=== PATIENT | female | born 1980 | race Caucasian/White ===

== ENCOUNTER → 2024-03-06 14:20 | Outpatient (REF) | payer OTHER, SELFPAY ==
[2024-03-07 15:57] LABS: Mumps Virus IgG Positive; Rubeola (Measles) IgG Positive; Varicella Zoster IgG (VZV) Positive
[2024-03-07 20:41] LABS: Rubella Positive
[2024-03-07 23:59] LABS: Hepatitis B Surface Antibody Indeterminate
== END ==
LOC: OHS 14:20
PROVIDERS: ATTENDING PHYSICIAN Nurse Practitioner Family
DX: Z23 Encounter for immunization (principal)
CPT/HCPCS: 36415; 86706; 86735; 86762; 86765; 86787

== ENCOUNTER 2024-06-07 09:30 | Emergency (ER) | payer SELFPAY ==
[2024-06-07 09:39] VITALS: BP 111/81
--- NOTE | 2024-06-07 09:48 | ED.GENMED ---
History of Present Illness
General
Chief Complaint: Medication Reaction
Source: patient
Exam Limitations: none
Time Seen by Provider: 06/07/24 09:47
History of Present Illness
History of Present Illness:
See MDM
Past History
Past History
ED Past Medical History: None
ED Past Surgical History: None
Social History
Tobacco: Non-smoker
Alcohol: Occasional
Phy Exam
Physical Exam
Physical Exam:
See MDM
Course
Orders/Labs/Results
Orders:
Orders
06/07/24 09:59
Urine Drug Abuse Screen Urgent
Date Specimen was Collected: 06/07/24
Time Specimen was Collected: 10:56
06/07/24 10:20
Alcohol Urgent
Complete Blood Count/With Diff Urgent
Comprehensive Metabolic Panel Urgent
Abnormal Lab Results
06/07/24
10:20
RDW 18.6 H %
(11.5-14.5)
Abs Immat Gran (auto) 0.1 H 10^3/uL
(0-0.05)
Immature Gran % 0.9 H %
(0-0.5)
Lymphocytes % 17.4 L %
(20.5-51.1)
Carbon Dioxide 18 L mmol/L
(22-30)
Creatinine 0.5 L mg/dL
(0.6-1.0)
AST 38 H U/L
(14-36)
Albumin 5.3 H g/dl
(3.5-5.0)
06/07/24 10:20
06/07/24 10:20
Vital Signs
Initial and Last Documented VS:
Initial Vital Signs
Temp Pulse Resp BP Pulse Ox
97.5 F 77 16 111/81 98
06/07/24 09:39 06/07/24 09:39 06/07/24 09:39 06/07/24 09:39 06/07/24 09:39
Last Documented Vital Signs
Temp Pulse Resp BP Pulse Ox
97.5 F 88 14 104/72 98
06/07/24 09:39 06/07/24 11:08 06/07/24 11:08 06/07/24 11:08 06/07/24 09:39
MDM/Problems Addressed
Differential Diagnosis Includes:
HPI and MDM Narrative:
43-year-old female presenting from occupational health for drug and alcohol testing. Patient was found to be 'off' earlier this morning at work. She was sent to occupational health and sent to the emergency department for testing. Patient blames
this on taking hydroxyzine at 5 AM. She denies any alcohol or drug use this morning. She does acknowledge that she drank alcohol last night. Patient's biggest issue is slurred speech and feeling 'off'. She denies headache, numbness or tingling
Physical exam
General: Well appearing and non-toxic
HEENT: protecting airway
Neck: appears supple
CV: No evidence of cyanosis. Regular rate and rhythm
Resp: No accessory muscle use
Abd: Non-distended
Extremities: No deformities. Moving legs and arms without difficulty.
Neuro: alert. Mild slurred speech. No aphasia. Sensation grossly intact. No focal neurodeficits no
Psych: Normal affect
Skin: Intact
Problems Addressed including Acute and Chronic Conditions affecting care:
1. Dysarthria
Acuity: acute
Prognosis: stable
Details: Potentially in the setting of drug or alcohol use. Patient believes this could be related to hydroxyzine. Will obtain UDS and alcohol level in addition to basic blood work
Updates
Patient found to have an alcohol level of 286 which correlates to her clinical exam
HR did have a discussion with patient. Will discharge home when she can find a ride.
Will have MARILIN evaluate
12:25 PM before MARILIN walked to the room, it was realized that the patient had eloped and could not be found
Differential Diagnosis (but not limited to): Alcohol use, medication side effect
Testing considered: CT head but no focal neurodeficits noted
Drug therapy (if applicable): OTC meds, please see d/c instruction regarding Rx drugs
Amount and/or Complexity of Data Reviewed
Clinical info obtained from: Patient
External data reviewed: N/A
Labs I independently reviewed (but not limited to): Elevated alcohol level
Radiology: N/A
Pulse Ox: not hypoxic
EKG independently reviewed: N/A
Subassembly Assembler: N/A
Critical Care: N/A
Risk of Complication:
Social Determinants of health: Good social support
Discussed with other providers: N/A
Escalation of Care includes Admit/Obs: After being observed in the Emergency Department, pt stable for discharge.
Occasional wrong word or 'sound a like' substitutions may have occurred due to the inherent limitations of voice recognition software. Read the chart carefully and recognize, using context, where substitutions have occurred.
*Critical Care Note
Total Time (30-74mins, 75-104mins- exclusive of procedures): Not Applicable
ED Attending Note
-
Portions of this chart may have been created with voice recognition software.� Occasional wrong word or��sound alike� substitutions may have occurred due to the inherent limitations of voice recognition software.
Discharge Plan
Departure
Patient Disposition: Home (Routine Discharge)
Date of Disposition: 06/07/24
Time of Disposition: 12:23
Patient with high blood pressure during this ER visit?: No
Discharge Problem:
Alcohol intoxication
Referrals:
NONE,* [Family Provider] -
Activity Restrictions/Additional Instructions:
Please follow-up with occupational health
Interventions
Interventions:
*Risk Screen - Suicide Last Done: 06/07/24 09:39
*General Assessment Last Done: 06/07/24 09:39
*Neglect/Abuse Screening Last Done: 06/07/24 09:39
*ED COVID-19 Vaccine History Last Done: 06/07/24 09:55
ED-Skin Assessment Last Done: 06/07/24 09:47
ED- Pulmonary Assessment Last Done: 06/07/24 09:47
ED-EENT Assessment Last Done: 06/07/24 09:47
Discharge Date and Time
Print Language: SLOVAK
[2024-06-07 10:48] LABS: ALT (SGPT) 22 U/L (0-35); AST (SGOT) 38 U/L (14-36); Albumin 5.3 g/dl (3.5-5.0); Alkaline Phosphatase 89 U/L (38-126); Blood Urea Nitrogen 13 mg/dl (7-17); Calcium 9.5 mg/dl (8.4-10.2); Carbon Dioxide 18 mmol/L (22-30); Chloride 105 mmol/L (98-107); Glucose 92 mg/dl (70-99); Potassium 4.6 mmol/L (3.5-5.1); Sodium 144 mmol/L (135-145); Total Protein 7.9 g/dl (6.3-8.2); eGFR > 60.00
[2024-06-07 10:51] LABS: % Basophils 0.7 % (0-2); % Eosinophils 1.9 % (0-6); % Immature Granulocytes 0.9 % (0-0.5); % Lymphocytes 17.4 % (20.5-51.1); % Monocytes 6.2 % (1.7-9.3); % Neutrophils 72.9 % (42.2-75.2); Absolute Basophils 0.1 10^3/uL (0-0.2); Absolute Eosinophils 0.2 10^3/uL (0-0.7); Absolute Immature Granulocytes 0.1 10^3/uL (0-0.05); Absolute Lymphocytes 1.4 10^3/uL (1.2-3.4); Absolute Monocytes 0.5 10^3/uL (0.1-0.6); Absolute Neutrophils 5.9 10^3/uL (1.4-6.5); Hematocrit 39.1 % (37.0-47.0); Hemoglobin 13.4 g/dL (12.0-16.0); Mean Corp Hgb Conc. 34.3 g/dL (33.0-37.0); Mean Corpuscular Hgb 29.1 pg (27.0-31.0); Mean Platelet Volume 9.6 fL (7.4-10.4); Nucleated Red Blood Cells % 0 %; Platelet Count 377 10^3/uL (130-400); Red Cell Dist. Width 18.6 % (11.5-14.5); White Blood Cell Count 8.1 10^3/uL (4.8-10.8)
[2024-06-07 11:08] VITALS: BP 104/72
[2024-06-07 11:25] LABS: Alcohol 286 mg/dl; Total Bilirubin 0.7 mg/dl (0.2-1.3)
== END 2024-06-07 12:39 | disposition left against medical advice (07) ==
LOC: EMR 09:30
PROVIDERS: EMERGENCY PHYSICIAN Student in an Organized Health Care Education/Training Program
DX: F10.129 Alcohol abuse with intoxication, unspecified (principal)
CPT/HCPCS: 99283; 80053; 82077; 85025

== ENCOUNTER 2024-07-16 13:03 | Emergency (ER) | payer SELFPAY ==
[2024-07-16 13:05] VITALS: BMI 20.1
[2024-07-16 13:06] VITALS: BP 115/86
[2024-07-16 13:12] VITALS: BP 115/86
[2024-07-16] MEDS: NSS 1000 IV (13:58)
[2024-07-16 14:00] VITALS: BP 116/82
--- NOTE | 2024-07-16 14:06 | ED.GENMED ---
History of Present Illness
<DOMINIQUE Corbett - Last Filed: 07/16/24 16:31>
General
Chief Complaint: Alcohol Problem
Source: patient
Exam Limitations: none
Time Seen by Provider: 07/16/24 13:11
Nursing documentation reviewed up to this point in time: agreed with
History of Present Illness
History of Present Illness:
Patient is a 43-year-old female who presents via EMS from work. Patient reports her boss was concerned that she was intoxicated and sent here for evaluation. Patient presents awake alert she admits to being an alcoholic and tells me she last drank
2 bottles of wine at 2 AM. She does feel dizzy now. She reports she has a long history of alcohol abuse and has been inpatient multiple times as well as outpatient.
She has no prior history of withdrawal seizures or delirium tremors. She does mention however that she does going to withdrawal which is why she started drinking again last night, she felt shakes come on approximately 8:15pm.
In addition she reports she took hydroxyzine last night and this morning.
Past History
<DOMINIQUE Corbett - Last Filed: 07/16/24 16:31>
Past History
ED Past Medical History: None
ED Past Surgical History: None
Social History
Tobacco: Non-smoker
Alcohol: Occasional
Review of Systems
<DOMINIQUE Corbett - Last Filed: 07/16/24 16:31>
Review of Systems
Allergies reviewed?: Yes
All Other Systems: ROS reviewed and negative except as documented in HPI and ROS
Constitutional: Reports no symptoms
Respiratory: Reports no symptoms
Cardiac: Reports no symptoms
ABD/GI: Reports no symptoms
: Reports no symptoms
Musculoskeletal: Reports no symptoms
Skin: Reports no symptoms
Neurological: Reports dizzy
Hematologic/Lymphatic: Reports no symptoms
Psychiatric: Denies suicidal
Phy Exam
<DOMINIQUE Corbett - Last Filed: 07/16/24 16:31>
General Physical Exam
General Presentation: no apparent distress
General age: appears stated age
General Skin: warm and dry
General Habitus: normal
General Mental: appears intoxicated
General Hydration: dry mucous membranes
Cardiovascular Exam
Cardiovascular Exam: regular rate/rhythm, no murmur and normal peripheral pulses
Pulmonary Exam
Pulmonary Exam: lungs clear and no respiratory distress
Neurological Exam
Neurological Exam: alert and oriented x3
Musculoskeletal Exam
Musculoskeletal Exam: full ROM
Skin Exam
Skin Exam: normal color and warm/dry
Psychiatric Exam
Psychiatric Exam: normal mood/affect
Scores
<DOMINIQUE Corbett - Last Filed: 07/16/24 16:31>
Withdrawal Assessment of Alcohol
Withdrawal Assessment Completed?: Yes
Nausea and Vomiting: No nausea and no vomiting
Tactile Disturbances: None
Tremor: No tremor
Auditory Disturbances: Not present
Paroxysmal Sweats: No sweat visible
Visual Disturbances: Not present
Anxiety: No anxiety, at ease
Headache, Fullness in Head: Not present
Agitation: Normal activity
Orientation and clouding of sensorium: Oriented and can do serial additions
Total CIWA Score: 0
Alcohol Withdrawal Medication Recommendation: Equal to MSAS Score 0-4. Monitor & re-assess q2hrs, NO MEDICATION NEEDED
<Refugio Resendiz MD - Last Filed: 07/17/24 08:19>
Withdrawal Assessment of Alcohol
Total CIWA Score: 0
Alcohol Withdrawal Medication Recommendation: Equal to MSAS Score 0-4. Monitor & re-assess q2hrs, NO MEDICATION NEEDED
Course
<DOMINIQUE Corbett - Last Filed: 07/16/24 16:31>
Orders/Labs/Results
Orders:
Orders
07/16/24 13:44
0.9% Sodium Chloride 1000 ml [Nss] 1,000 ml IV BOLUS
Test Result ONCE
07/16/24 13:56
Alcohol Urgent
Complete Blood Count/With Diff Urgent
Comprehensive Metabolic Panel Urgent
HCG, Serum Qualitative Screen Urgent
Abnormal Lab Results
07/16/24
13:56
WBC 3.7 L 10^3/uL
(4.8-10.8)
MCH 31.1 H pg
(27.0-31.0)
RDW 18.1 H %
(11.5-14.5)
Immature Gran % 0.8 H %
(0-0.5)
Sodium 148 H mmol/L
(135-145)
AST 44 H U/L
(14-36)
Albumin 5.4 H g/dl
(3.5-5.0)
07/16/24 13:56
07/16/24 13:56
Vital Signs
Initial and Last Documented VS:
Initial Vital Signs
Temp Pulse Resp BP Pulse Ox
98.0 F 74 17 115/86 94
07/16/24 13:06 07/16/24 13:06 07/16/24 13:06 07/16/24 13:06 07/16/24 13:06
Last Documented Vital Signs
Temp Pulse Resp BP Pulse Ox
98.0 F 83 14 116/82 98
07/16/24 13:06 07/16/24 14:00 07/16/24 14:00 07/16/24 14:00 07/16/24 13:30
General Distillery Worker consulted with Physician
General Distillery Worker consulted with physician?: Yes
Name of Physician Consulted: DR Marino
<Refugio Resendiz MD - Last Filed: 07/17/24 08:19>
Orders/Labs/Results
Orders:
Orders
07/16/24 13:44
0.9% Sodium Chloride 1000 ml [Nss] 1,000 ml IV BOLUS
Test Result ONCE
07/16/24 13:56
Alcohol Urgent
Complete Blood Count/With Diff Urgent
Comprehensive Metabolic Panel Urgent
HCG, Serum Qualitative Screen Urgent
Abnormal Lab Results
07/16/24
13:56
WBC 3.7 L 10^3/uL
(4.8-10.8)
MCH 31.1 H pg
(27.0-31.0)
RDW 18.1 H %
(11.5-14.5)
Immature Gran % 0.8 H %
(0-0.5)
Sodium 148 H mmol/L
(135-145)
AST 44 H U/L
(14-36)
Albumin 5.4 H g/dl
(3.5-5.0)
07/16/24 13:56
07/16/24 13:56
Vital Signs
Initial and Last Documented VS:
Initial Vital Signs
Temp Pulse Resp BP Pulse Ox
98.0 F 74 17 115/86 94
07/16/24 13:06 07/16/24 13:06 07/16/24 13:06 07/16/24 13:06 07/16/24 13:06
Last Documented Vital Signs
Temp Pulse Resp BP Pulse Ox
98.0 F 83 14 116/82 98
07/16/24 13:06 07/16/24 14:00 07/16/24 14:00 07/16/24 14:00 07/16/24 13:30
<DOMINIQUE Corbett - Last Filed: 07/16/24 16:31>
MDM/Problems Addressed
Differential Diagnosis Includes:
not limited to: acute alcohol intoxication
MDM/Problems Addressed:
As documented patient is a 43-year-old female sent by work for concerns for slurred speech. Patient presents awake alert she reports she is an alcoholic and tells me she last drank last night at 2 AM however she does appear mildly intoxicated. She
however is awake alert and not confused able to follow commands and is ambulatory with a steady gait. Patient consented for blood and alcohol testing. Patient was cooperative however then wanted to leave and did rip her IV line out. Patient was
evaluated both myself and ED physician and despite alcohol level being elevated patient has remained awake alert and has a very steady gait.
Pt had no evidence of withdrawal here in the ER was nontachycardic nontachypneic.
Patient's alcohol level was elevated to 92. Patient did not have her phone and was not able to call for a ride and therefore a Ly[employer] was called for patient patient was taken directly from the ER treatment area to the lift by the RN and lift was
taken patient directly to her home address listed.
<DOMINIQUE Corbett - Last Filed: 07/16/24 16:31>
*Pulse Oximetry
Patient hypoxic: no
*Critical Care Note
Total Time (30-74mins, 75-104mins- exclusive of procedures): Not Applicable
ED Attending Note
<DOMINIQUE Corbett - Last Filed: 07/16/24 16:31>
-
Portions of this chart may have been created with voice recognition software.� Occasional wrong word or��sound alike� substitutions may have occurred due to the inherent limitations of voice recognition software.
<Refugio Resendiz MD - Last Filed: 07/17/24 08:19>
ED Attending Note
Patient seen and examined by attending physician: Yes
I performed the substantive portion of visit, reviewed & personally made and approve the management plan that is documented in note by myself or JCARLOS.: Yes
ED Attending Note:
I have seen and evaluated the patient with a [id number] encounter. I have spoken to the [PA] and involved in the medical history, the physical exam, medical decision making.
Evaluation and management service: agree unless noted differently below.
Results interpretation: agree unless noted differently below.
Patient is a 43-year-old woman with history of alcohol use presenting to the emergency department with alcohol intoxication. Per medics patient was at work when she was found to be slurring her, sent to the emergency department for evaluation.
Patient does state that she drank 2 bottles of wine last night. Does not feel that she is going through withdrawal right now. She does feel slightly groggy and dizzy. She has been to detox many times before. She is not interested in going today.
She has no medical complaints is actually requesting discharge. On exam patient does appear slightly groggy. She does not have any focal findings on exam such as traumatic injuries or focal neurodeficits. Likely grogginess from alcohol. Could
be related to electrolyte derangement. Considered intracranial abnormality though less likely given that patient admits to the alcohol and no focal deficits. Will give fluids. I did emphasize to patient that this time patient cannot leave until
she is more clinically sober and stable. I did offer B cares however patient is not interested in detox at this time.
On reevaluation patient is requesting discharge. She is ambulatory with a steady gait. She remains to have coherent thought process. She feels as if she is going through withdrawal currently. She unfortunately does not have a ride home but can
take a taxi home. At this time alcohol level did come back and it was elevated. However patient clinically does appear as if she is going through mild withdrawal with subjective feelings of agitation and nausea.No objective signs as She is not
tachycardic, tachypneic, or diaphoretic. She certainly could live at a higher level and is having some component of withdrawal at a level of 292. I did offer PO valium to help however patient refused and requesting to be discharged so she can go
home. At this time given that patient is ambulatory with a steady gait normal thought process we can safely discharge home with a taxi.
Discharge Plan
Departure
Patient Disposition: Home (Routine Discharge)
Date of Disposition: 07/16/24
Time of Disposition: 14:43
Patient with high blood pressure during this ER visit?: No
Condition: Fair
Covid-19: Not Applicable
Discharge Problem:
Alcohol intoxication
Referrals:
[facility] [Provider Group]
[facility] [Outside]
NONE,* [Family Provider] -
Stand Alone Forms: Return to Work
Activity Restrictions/Additional Instructions:
Follow-up as discussed with family doctor for re-evaluation. You were given Family practice clinic .
Your liver function test/AST was minimally elevated. This is likely from alcohol use ,please have this evaluated by [facility] clinic physicians.
Increase water intake.
Return if any worsening of symptoms.
You were offered outpatient resources for alcohol abuse however you declined.
Interventions
Interventions:
*Risk Screen - Suicide Last Done: 07/16/24 13:13
*General Assessment Last Done: 07/16/24 13:13
*Neglect/Abuse Screening Last Done: 07/16/24 13:13
ED- Fall Risk Assessment Last Done: 07/16/24 13:15
*ED COVID-19 Vaccine History Last Done: 07/16/24 13:13
*Nursing Disposition Last Done: 07/16/24 16:47
ED- Neurological Assessment Last Done: 07/16/24 13:15
ED-Psychological Assessment Last Done: 07/16/24 13:15
Discharge Date and Time
Discharge Date/Time: 07/16/24 16:48
Print Language: UKRAINIAN
[2024-07-16 14:13] LABS: % Basophils 1.6 % (0-2); % Eosinophils 1.9 % (0-6); % Immature Granulocytes 0.8 % (0-0.5); % Lymphocytes 31.7 % (20.5-51.1); % Monocytes 4.1 % (1.7-9.3); % Neutrophils 59.9 % (42.2-75.2); Absolute Basophils 0.1 10^3/uL (0-0.2); Absolute Eosinophils 0.1 10^3/uL (0-0.7); Absolute Lymphocytes 1.2 10^3/uL (1.2-3.4); Absolute Monocytes 0.2 10^3/uL (0.1-0.6); Absolute Neutrophils 2.2 10^3/uL (1.4-6.5); Hematocrit 44.2 % (37.0-47.0); Hemoglobin 15.5 g/dL (12.0-16.0); Mean Corp Hgb Conc. 35.1 g/dL (33.0-37.0); Mean Corpuscular Hgb 31.1 pg (27.0-31.0); Mean Corpuscular Volume 88.6 fL (81.0-99.0); Mean Platelet Volume 9.1 fL (7.4-10.4); Nucleated Red Blood Cells % 1.1 %; Platelet Count 342 10^3/uL (130-400); Red Blood Cell Count 4.99 10^6/uL (4.20-5.40); Red Cell Dist. Width 18.1 % (11.5-14.5); White Blood Cell Count 3.7 10^3/uL (4.8-10.8)
[2024-07-16 14:21] LABS: HCG, Serum Qualitative Screen Negative
[2024-07-16 14:25] LABS: ALT (SGPT) 28 U/L (0-35); AST (SGOT) 44 U/L (14-36); Albumin 5.4 g/dl (3.5-5.0); Alkaline Phosphatase 85 U/L (38-126); Blood Urea Nitrogen 11 mg/dl (7-17); Calcium 9.8 mg/dl (8.4-10.2); Carbon Dioxide 24 mmol/L (22-30); Chloride 103 mmol/L (98-107); Estimated Creatinine Clearance 107 ml/min; Glucose 90 mg/dl (70-99); Potassium 4.7 mmol/L (3.5-5.1); Sodium 148 mmol/L (135-145); Total Bilirubin 0.5 mg/dl (0.2-1.3); Total Protein 8.2 g/dl (6.3-8.2); eGFR > 60.00
[2024-07-16 14:52] LABS: Alcohol 292 mg/dl
== END 2024-07-16 16:48 | disposition home or self-care (01) ==
LOC: EMR 13:03
PROVIDERS: Nurse Practitioner; EMERGENCY PHYSICIAN Student in an Organized Health Care Education/Training Program
DX: F10.129 Alcohol abuse with intoxication, unspecified (principal); Y90.4 Blood alcohol level of 80-99 mg/100 ml
CPT/HCPCS: 96360; 99284; 80053; 82077; 84703; 85025